=== PATIENT | female | born 1990 | race Caucasian/White ===

== ENCOUNTER 2020-09-25 10:25 | Outpatient (RCR) | payer OTHER | END 2020-12-24 | disposition home or self-care (01) | LOC: WSOH | DX: K40.90 Unilateral inguinal hernia, without obstruction or gangrene, not specified as recurrent (principal); F41.8 Other specified anxiety disorders; Y99.0 Civilian activity done for income or pay ==

== ENCOUNTER → 2020-11-28 | Outpatient (REF) | LOC: COL.LAB 08:17 → EDSTATUS 08:18 | DX: Z20.822 Contact with and (suspected) exposure to COVID-19 (principal) ==

== ENCOUNTER → 2020-12-11 | Outpatient (REF) | LOC: COL.LAB 13:00 | DX: U07.1 COVID-19 (principal) ==

== ENCOUNTER → 2022-10-06 | Outpatient (CLI) | payer OTHER | LOC: MC.RAD 16:22 | DX: Z12.31 Encounter for screening mammogram for malignant neoplasm of breast (principal); Z80.3 Family history of malignant neoplasm of breast ==